=== PATIENT | female | born 1990 | race Caucasian/White ===

== ENCOUNTER 2016-12-20 17:18 | Emergency (ER) | payer OTHER ==
[2016-12-20 17:30] VITALS: BP 138/88; PULSE 99; O2SAT 97
[2016-12-20] MEDS ORDERED: Hydromorphone 1 mg/ml Ampule IV ONE (17:54)
[2016-12-20] MEDS ORDERED: TYLENOL 325 MG PO ONE (17:54)
[2016-12-20] MEDS ORDERED: ROCEPHIN 1 Gm-D5w 50 ml Bag** 1 G/50 ML IVPB IV STA (17:54)
[2016-12-20] MEDS ORDERED: BENADRYL 50 MG/ML IV ONE (17:54)
[2016-12-20] MEDS ORDERED: Sodium Chloride 0.9% 1000 ML 1,000 ML IV STA (17:54)
[2016-12-20 17:59] LABS: VBG BASE EXCESS -0.8 (-2.0-2.0); VBG HCO3- 26.7 meq/L (22-28); VBG HEMOGLOBIN 17.3; VBG O2 SATURATION 68.2 (95-100); VBG POTASSIUM 5.1 (3.5-5.1); VBG pH 7.31 (7.32-7.42)
--- NOTE | 2016-12-20 18:06 | ERPHSYRPT ---
- History of Present Illness Time Seen by Provider: 12/20/16 17:23 Source: patient, family (father) Patient Subjective Stated Complaint: pt states around 1300 this afternoon she developed pain in her right ear. states she has ahd acold. Triage Nursing Assessment: pt pink, warm, dry. redness noted to right earadrum. pt afebrile. Physician History: CC: right ear pain hx: 26 y/o patient with hx of IDDM on metformin and one shot of insulin daily. She has severe right ear pain today. Some headache last night for which she took asa. She has seen [facility] in the past two months and thinks she saw [facility] Adrián. Computer lists Dr Vasquez as primary doctor. Pt has no fever or chills. States LMP one week ago and not . She states she darnk coffee with creamer and chili with sugar today. Her sugars are often high. She has not checked for a week and is out of supplies. Allergies/Adverse Reactions: No Known Drug Allergies Allergy (Unverified 12/20/16 17:30) Home Medications: Insulin Glargine,Hum.rec.anlog [Lantus] 10 unit SQ HS 12/20/16 [History] Metformin HCl 500 mg [Glucophage 500 MG] 500 mg PO DAILY 12/20/16 [History ] Hx Tetanus, Diphtheria Vaccination/Date Given: Yes (up to date) Hx Influenza Vaccination/Date Given: No Hx Pneumococcal Vaccination/Date Given: No Immunizations Up to Date: Yes - Review of Systems Constitutional: No Fever, No Chills Eyes: No Symptoms Ears, Nose, & Throat: Ear Pain (right), No Ear Discharge Respiratory: No Cough, No Dyspnea Cardiac: No Chest Pain Abdominal/Gastrointestinal: No Abdominal Pain, No Nausea, No Vomiting Skin: No Rash Neurological: Headache (yesterday), No Focal Weakness, No Parasthesia Endocrine: Polyuria, Polydipsia All Other Systems: Reviewed and Negative - Past Medical History Pertinent Past Medical History: Yes Endocrine Medical History: Diabetes Type I - Past Surgical History Past Surgical History: Yes Other Surgical History: nasal surgery. oral surgery - Social History Smoking Status: Current every day smoker How long have you smoked: 10 Exposure to second hand smoke: No Drug Use: marijuana Patient Lives Alone: No - Female History Hx Last Menstrual Period: middle nov 2016 - Nursing Vital Signs Nursing Vital Signs: Initial Vital Signs Temperature 97.8 F 12/20/16 17:26 Pulse Rate 99 H 12/20/16 17:26 Respiratory Rate 20 12/20/16 17:26 Blood Pressure 138/88 12/20/16 17:26 O2 Sat by Pulse Oximetry 97 12/20/16 17:26 Pain Scale Pain Intensity 7 - Physical Exam General Appearance: alert Eye Exam: bilateral eye: PERRL, EOMI Ear Exam: right ear: TM red, TM bulging, other (used sweet oil), left ear: TM normal, bilateral ear: auricle normal, canal normal Nasal Exam: normal inspection Throat Exam: pharynx normal Neck Exam: normal inspection, non-tender, supple Cardiovascular/Respiratory Exam: chest non-tender, normal breath sounds, regular rate/rhythm Abdominal Exam: non-tender, soft Neurologic Exam: alert, oriented x 3, cooperative, sensation nml, No motor deficits Skin Exam: warm, dry, No rash SpO2 Interpretation: normal SpO2: 97 Oxygen Delivery: Room Air - Course Nursing assessment & vital signs reviewed: Yes Ordered Tests: Active Orders 24 hr Category Date Time Status IV Insertion STAT Care 12/20/16 17:54 Active BMP Stat Lab 12/20/16 18:02 Completed CBC W DIFF Stat Lab 12/20/16 18:02 Completed Glucose,Critical Care Urgent Lab 12/20/16 17:45 Completed HCG QUALITATIVE,SERUM Stat Lab 12/20/16 18:02 Completed Manual Differential NC Stat Lab 12/20/16 18:02 Completed VENOUS BLOOD GAS Urgent Lab 12/20/16 17:45 Completed Medication Summary Discontinued Medications Generic Name Dose Route Start Last Admin Trade Name Vick PRN Reason Stop Dose Admin Acetaminophen 650 mg 12/20/16 17:54 12/20/16 18:19 Tylenol 325 Mg PO 12/20/16 17:55 650 mg STAT ONE Administration Acetaminophen Confirm 12/20/16 18:09 Tylenol 325 Mg Administered 12/20/16 18:10 Dose 650 mg .ROUTE .STK-MED ONE Diphenhydramine HCl 25 mg 12/20/16 17:54 12/20/16 18:15 Benadryl 50 Mg/Ml IV 12/20/16 17:55 25 mg STAT ONE Administration Diphenhydramine HCl Confirm 12/20/16 18:09 Benadryl 50 Mg/Ml Administered 12/20/16 18:10 Dose 50 mg .ROUTE .STK-MED ONE Hydromorphone HCl 1 mg 12/20/16 17:54 12/20/16 18:14 Hydromorphone 1 Mg/Ml Ampule IV 12/20/16 17:55 1 mg STAT ONE Administration Hydromorphone HCl Confirm 12/20/16 18:09 Hydromorphone 1 Mg/Ml Ampule Administered 12/20/16 18:10 Dose 1 mg .ROUTE .STK-MED ONE Ceftriaxone Sodium/Dextrose 1 g in 50 mls @ 100 mls/hr 12/20/16 17:54 18:19 Rocephin 1 Gm-D5w 50 Ml Bag IV 12/20/16 18:23 100 mls/hr STAT STA Administration Sodium Chloride 1,000 mls @ 999 mls/hr 12/20/16 17:54 12/20/16 18:13 Sodium Chloride 0.9% 1000 Ml IV 12/20/16 18:54 999 mls/hr .Q1H1M STA Administration Sodium Chloride Confirm 12/20/16 18:09 Sodium Chloride 0.9% 1000 Ml Administered 12/20/16 18:10 Dose 1,000 mls @ ud .ROUTE .STK-MED ONE Ceftriaxone Sodium/Dextrose Confirm 12/20/16 18:09 Rocephin 1 Gm-D5w 50 Ml Bag Administered 12/20/16 18:10 Dose 1 g in 50 mls @ ud IV .STK-MED ONE Insulin Aspart 15 unit 12/20/16 18:08 12/20/16 18:38 Novolog Insulin SQ 12/20/16 18:09 15 unit STAT ONE Administration Insulin Aspart Confirm 12/20/16 18:33 Novolog Insulin Administered 12/20/16 18:34 Dose 15 unit .ROUTE .STK-MED ONE Lab/Rad Data: Laboratory Result Diagrams 12/20/16 18:02 12/20/16 18:02 Laboratory Results 12/20/16 12/20/16 12/20/16 Range/Units 18:02 18:02 18:02 WBC 10.0 (4.0-10.5) K/mm3 RBC 5.92 H (4.1-5.4) M/mm3 Hgb 16.5 H (12.0-16.0) gm/dl Hct 48.8 H (35-47) % MCV 82.4 (78-100) fl MCH 27.8 (26-32) pg MCHC 33.8 (32-36) g/dl RDW 12.5 (11.5-14.0) % Plt Count 404 (150-450) K/mm3 MPV 10.2 H (6-9.5) fl VBG pH (7.32-7.42) VBG pCO2 at Pat Temp (42-55) mm/Hg VBG pO2 at Pat Temp (25-40) mm/Hg VBG HCO3 (22-28) meq/L VBG O2 Sat ([place]) (95-100) VBG Base Excess (-2.0-2.0) VBG Hemoglobin VBG Carboxyhemoglobin (0.0-6.9) % T HGB POC Potassium (3.5-5.1) Glucose 596 H* (70-110) Sodium 129 L (136-145) mEq/L Potassium 4.6 (3.5-5.1) mEq/L Chloride 91 L (98-107) mEq/L Carbon Dioxide 24.4 (21-32) mEq/L Anion Gap 17.8 H (5-15) MEQ/L BUN 19 (9-20) mg/dL Creatinine 1.11 (0.55-1.30) mg/dl Estimated GFR > 60 ML/MIN Calcium 10.5 H (8.5-10.1) mg/dL Serum , Qual NEGATIVE (Negative) 12/20/16 12/20/16 Range/Units 17:45 17:45 WBC (4.0-10.5) K/mm3 RBC (4.1-5.4) M/mm3 Hgb (12.0-16.0) gm/dl Hct (35-47) % MCV (78-100) fl MCH (26-32) pg MCHC (32-36) g/dl RDW (11.5-14.0) % Plt Count (150-450) K/mm3 MPV (6-9.5) fl VBG pH 7.31 L (7.32-7.42) VBG pCO2 at Pat Temp 53 (42-55) mm/Hg VBG pO2 at Pat Temp 33 (25-40) mm/Hg VBG HCO3 26.7 (22-28) meq/L VBG O2 Sat ([place]) 68.2 L (95-100) VBG Base Excess -0.8 (-2.0-2.0) VBG Hemoglobin 17.3 VBG Carboxyhemoglobin 7.0 H* (0.0-6.9) % T HGB POC Potassium 5.1 (3.5-5.1) Glucose 701 H* (70-110) Sodium (136-145) mEq/L Potassium (3.5-5.1) mEq/L Chloride (98-107) mEq/L Carbon Dioxide (21-32) mEq/L Anion Gap (5-15) MEQ/L BUN (9-20) mg/dL Creatinine (0.55-1.30) mg/dl Estimated GFR ML/MIN Calcium (8.5-10.1) mg/dL Serum , Qual (Negative) - Progress Progress Note: 12/20/16 19:02 IVF bolus given. IV rocephin given. Labs reviewed [facility] pt and father. She is really unsure of name of insulin but takes it. She was advised needs to watch diet, follow up with [facility] this week. Instr given. Counseled pt/family regarding: lab results, diagnosis, need for follow-up - Departure Time of Disposition: 19:03 Departure Disposition: Home Clinical Impression: Right otitis media Qualifiers: Otitis media type: suppurative Chronicity: acute Recurrence: not specified as recurrent Spontaneous tympanic membrane rupture: without spontaneous rupture Qualified Code(s): H66.001 - Acute suppurative otitis media without spontaneous rupture of ear drum, right ear Uncontrolled type 2 diabetes mellitus Qualifiers: Diabetes mellitus complication status: without complication Condition: Fair Critical Care Time: No Referrals: CHRSITINA VASQUEZ MD [Primary Care Provider] - Instructions: Otitis Media (Middle Ear Infection), Diabetes Type 2, Hyperglycemia -- Adult, Ear Pain Additional Instructions: Rx amoxil. Follow up with primary care doctor this week. Avoid sugar and sweets, watch sugars, continue insulin and metformin. Return for fever, recurrent vomiting, concerns. Rx ibuprofen for pain. Prescriptions: Ibuprofen 600 mg PO Q6H PRN PRN #15 tablet PRN Reason: Pain Amoxicillin [Amoxil] 1 cap PO TID #30 capsule
[2016-12-20 18:08] LABS: Mean Cell Volume 82.4 fl (78-100); Mean Platelet Volume 10.2 fl (6-9.5); Platelet Count 404 K/mm3 (150-450); Red Blood Count 5.92 M/mm3 (4.1-5.4); Red Cell Distribution Width 12.5 % (11.5-14.0)
[2016-12-20] MEDS ORDERED: NovoLOG Insulin SQ ONE (18:08)
[2016-12-20] MEDS ORDERED: BENADRYL 50 MG/ML ONE (18:09)
[2016-12-20] MEDS ORDERED: ROCEPHIN 1 Gm-D5w 50 ml Bag** 1 G/50 ML IVPB IV ONE (18:09)
[2016-12-20] MEDS ORDERED: Sodium Chloride 0.9% 1000 ML 1,000 ML ONE (18:09)
[2016-12-20] MEDS ORDERED: Hydromorphone 1 mg/ml Ampule ONE (18:09)
[2016-12-20] MEDS ORDERED: TYLENOL 325 MG ONE (18:09)
[2016-12-20 18:10] LABS: Mean Corpuscular Hemoglobin 27.8 pg (26-32)
[2016-12-20 18:20] LABS: ANION GAP 17.8 MEQ/L (5-15); BLOOD UREA NITROGEN 19 mg/dL (9-20); CHLORIDE 91 mEq/L (98-107); Carbon Dioxide 24.4 mEq/L (21-32); Potassium 4.6 mEq/L (3.5-5.1); SODIUM 129 mEq/L (136-145)
[2016-12-20] MEDS ORDERED: NovoLOG Insulin ONE (18:33)
[2016-12-20 18:36] LABS: Glucose 596 MG/DL (70-110)
[2016-12-20 19:41] LABS: Eosinophil 1 % (0.00-3.0); Total Cells Counted 100
[2016-12-20 19:42] LABS: Platelet Estimate NORMAL (NORMAL)
== END 2016-12-20 19:28 | disposition home or self-care (01) ==
LOC: ED 17:18
DX: H66.001 Acute suppurative otitis media without spontaneous rupture of ear drum, right ear (principal); E11.65 Type 2 diabetes mellitus with hyperglycemia; Z79.4 Long term (current) use of insulin
CPT/HCPCS: 36000; 36415; 80048; 82805; 82947; 84703; 85025; 96372; 96374; 96375; 99283; J0696; J1170; J1200; A9270-GY

== ENCOUNTER 2017-08-31 18:05 | Emergency (ER) | payer OTHER ==
[2017-08-31 18:13] VITALS: O2SAT 98
[2017-08-31] MEDS ORDERED: Sodium Chloride 0.9% 1000 ML 2,000 ML ONE (18:14)
[2017-08-31] MEDS ORDERED: Sodium Chloride 0.9% 1000 ML 1,000 ML IV STA ×2 (18:14→18:16)
--- NOTE | 2017-08-31 18:22 | ERPHSYRPT ---
- History of Present Illness Source: patient Exam Limitations: no limitations Patient Subjective Stated Complaint: Hyperglycemia x1 hour, weakness, and intermittent AMS Triage Nursing Assessment: Pt presents to the ED with complaints of hyperglycemia x1 hour. Pt states she is supposed to take daily metformin as well as insulin injections but has been noncompliant x "several months." Pt is pale on arrival, alert and oriented x4, no distress noted, skin PWD. Pt states "I need an insulin shot." Timing/Duration: today Severity: moderate Modifying Factors: Improves With: nothing Associated Symptoms: diaphoresis, other (patient feels intermittently confused states her sugars are high), No nausea, No vomiting, No abdominal pain, No shortness of breath, No heartburn, No cough, No chills, No chest pain, No fever , No headaches, No loss of appetite, No malaise, No rash, No syncope, No seizure , No weakness Hx Tetanus, Diphtheria Vaccination/Date Given: Yes Hx Influenza Vaccination/Date Given: No Hx Pneumococcal Vaccination/Date Given: No Immunizations Up to Date: No <DUC RENDON - Last Filed: 08/31/17 19:24> <LITA SCHNEIDER - Last Filed: 08/31/17 21:43> - History of Present Illness Time Seen by Provider: 08/31/17 18:16 Physician History: 27-year-old white female arrives with complaints of a having high sugars for about an hour apparently felt somewhat confused Patient does have a history of diabetes Past medical history includes insulin-dependent diabetes mellitus Past surgical history includes oral surgery Social history is positive for tobacco use positive for marijuana use positive occasional alcohol use (DUC RENDON) Allergies/Adverse Reactions: No Known Drug Allergies Allergy (Verified 08/31/17 18:14) Home Medications: No Reportable Medications [No Reported Medications] 08/31/17 [History] - Review of Systems Constitutional: Other (feels somewhat confused), No Fever, No Chills Eyes: No Symptoms Ears, Nose, & Throat: No Symptoms Respiratory: No Cough, No Dyspnea Cardiac: No Chest Pain, No Edema, No Syncope Abdominal/Gastrointestinal: No Abdominal Pain, No Nausea, No Vomiting, No Diarrhea Genitourinary Symptoms: No Dysuria Musculoskeletal: No Back Pain, No Neck Pain Skin: No Rash Neurological: No Dizziness, No Focal Weakness, No Sensory Changes Psychological: No Symptoms Endocrine: No Symptoms All Other Systems: Reviewed and Negative <DUC RENDON - Last Filed: 08/31/17 19:24> - Past Medical History Pertinent Past Medical History: Yes Endocrine Medical History: Diabetes Type I - Past Surgical History Past Surgical History: Yes Other Surgical History: nasal surgery. oral surgery - Social History Smoking Status: Current every day smoker How long have you smoked: 10 years Exposure to second hand smoke: Yes Drug Use: marijuana Patient Lives Alone: No - Female History Hx Last Menstrual Period: 08/06/2017 Hx Now: No <DUC RENDON - Last Filed: 08/31/17 19:24> - Physical Exam General Appearance: no apparent distress, alert Eye Exam: PERRL/EOMI, eyes nml inspection Ears, Nose, Throat Exam: normal ENT inspection, TMs normal, pharynx normal, moist mucous membranes Neck Exam: normal inspection, non-tender, supple, full range of motion Respiratory Exam: normal breath sounds, lungs clear, No respiratory distress Cardiovascular Exam: regular rate/rhythm, normal heart sounds, normal peripheral pulses Gastrointestinal/Abdomen Exam: soft, normal bowel sounds, No tenderness, No mass Back Exam: normal inspection, normal range of motion, No CVA tenderness, No vertebral tenderness Extremity Exam: normal inspection, normal range of motion, pelvis stable Neurologic Exam: alert, oriented x 3, cooperative, corrugator operator II-XII nml as tested, normal mood/affect, nml cerebellar function, nml station & gait, sensation nml, No motor deficits Skin Exam: normal color, warm, dry, No rash Lymphatic Exam: No adenopathy SpO2 Interpretation: normal (98%) SpO2: 98 Oxygen Delivery: Room Air <DUC RENDON - Last Filed: 08/31/17 19:24> - Nursing Vital Signs Nursing Vital Signs: Initial Vital Signs Temperature 98.6 F 08/31/17 18:10 Pulse Rate 109 H 08/31/17 18:10 Respiratory Rate 13 08/31/17 18:10 Blood Pressure 130/88 08/31/17 18:10 O2 Sat by Pulse Oximetry 98 08/31/17 18:10 Pain Scale Pain Intensity 0 - Course Nursing assessment & vital signs reviewed: Yes EKG Interpreted by Me: RATE (93 bpm), Sinus Rhythm, NORMAL AXIS, Other (EKG: Sinus rhythm, 93 bpm, no acute ST or T WAVE changes, essentially normal EKG) <JULIETADUC GOMEZ - Last Filed: 08/31/17 19:24> Ordered Tests: Active Orders 24 hr Category Date Time Status Accucheck STAT Care 08/31/17 18:14 Active EKG-ER Only STAT Care 08/31/17 18:14 Active IV Insertion STAT Care 08/31/17 18:14 Active Pulse Oximetry (ED) STAT Care 08/31/17 18:14 Active CBC W DIFF Stat Lab 08/31/17 18:30 Completed CMP Stat Lab 08/31/17 18:30 Completed ETHYL ALCOHOL Stat Lab 08/31/17 18:30 Completed HCG QUALITATIVE,SERUM Stat Lab 08/31/17 18:30 Completed Manual Differential NC Stat Lab 08/31/17 18:30 Completed UA W/RFX UR CULTURE Stat Lab 08/31/17 19:25 Completed Urine Triage Profile Stat Lab 08/31/17 19:25 Completed VENOUS BLOOD GAS Urgent Lab 08/31/17 18:14 Completed Medication Summary Discontinued Medications Generic Name Dose Route Start Last Admin Trade Name Vick PRN Reason Stop Dose Admin Sodium Chloride Confirm 08/31/17 18:14 Sodium Chloride 0.9% 1000 Ml Administered 08/31/17 18:15 Dose 2,000 mls @ ud .ROUTE .STK-MED ONE Sodium Chloride 1,000 mls @ 999 mls/hr 08/31/17 18:14 08/31/17 18:39 Sodium Chloride 0.9% 1000 Ml IV 08/31/17 19:14 999 mls/hr .Q1H1M STA Administration Sodium Chloride 1,000 mls @ 999 mls/hr 08/31/17 18:16 08/31/17 18:39 Sodium Chloride 0.9% 1000 Ml IV 08/31/17 19:16 999 mls/hr .Q1H1M STA Administration Insulin Human Regular 6 unit 08/31/17 20:30 08/31/17 21:00 Novolin R IV 08/31/17 20:31 6 unit STAT ONE Administration Insulin Human Regular Confirm 08/31/17 20:59 Novolin R Administered 08/31/17 21:00 Dose 6 unit .ROUTE .STK-MED ONE Lab/Rad Data: Laboratory Result Diagrams 08/31/17 18:30 08/31/17 18:30 Laboratory Results 08/31/17 08/31/17 08/31/17 Range/Units 19:25 19:25 18:30 WBC (4.0-10.5) K/mm3 RBC (4.1-5.4) M/mm3 Hgb (12.0-16.0) gm/dl Hct (35-47) % MCV (78-100) fl MCH (26-32) pg MCHC (32-36) g/dl RDW (11.5-14.0) % Plt Count (150-450) K/mm3 MPV (6-9.5) fl Absolute Granulocytes (1.4-6.9) Segmented Neutrophils (36.0-66.0) % Band Neutrophils (0.0-2.0) % Lymphocytes (Manual) (24-44) % Monocytes (Manual) (0.0-12.0) % Eosinophils (Manual) (0.00-3.0) % Platelet Estimate (NORMAL) RBC Morphology pO2/FiO2 Ratio % VBG pH (7.32-7.42) VBG pCO2 at Pat Temp (42-55) mm/Hg VBG pO2 at Pat Temp (25-40) mm/Hg VBG HCO3 (22-28) meq/L VBG O2 Sat ([place]) (95-100) VBG Base Excess (-2.0-2.0) VBG Hemoglobin VBG Carboxyhemoglobin (0.0-6.9) % T HGB POC Potassium (3.5-5.1) Sodium (137-145) mmol/L Potassium (3.5-5.1) mmol/L Chloride (98-107) mmol/L Carbon Dioxide (22-30) mmol/L Anion Gap (5-15) MEQ/L BUN (7-17) mg/dL Creatinine (0.52-1.04) mg/dL Estimated GFR ML/MIN Glucose (74-106) mg/dL Calcium (8.4-10.2) mg/dL Total Bilirubin (0.2-1.3) mg/dL AST (14-36) U/L ALT (0-35) U/L Alkaline Phosphatase (38-126) U/L Serum Total Protein (6.3-8.2) g/dL Albumin (3.5-5.0) g/dL Serum , Qual NEGATIVE (Negative) Ur Collection Type CCMS Urine Color YELLOW (YELLOW) Urine Appearance CLEAR (CLEAR) Urine pH 7.0 (5-6) Ur Specific [place] 1.015 (1.005-1.025) Urine Protein NEGATIVE (Negative) Urine Ketones NEGATIVE (NEGATIVE) Urine Blood NEGATIVE (0-5) Maik/ul Urine Nitrite NEGATIVE (NEGATIVE) Urine Bilirubin NEGATIVE (NEGATIVE) Urine Urobilinogen NORMAL (0-1) mg/dL Ur Leukocyte Esterase NEGATIVE (NEGATIVE) Urine Culture Reflexed NO (NO) Urine Glucose 1000 (NEGATIVE) mg/dL Urine Opiates Level NEGATIVE (NEGATIVE) Ur Methadone NEGATIVE (NEGATIVE) Urine Barbiturates NEGATIVE (NEGATIVE) Ur Phencyclidine (PCP) NEGATIVE (NEGATIVE) Urine Amphetamine POSITIVE (NEGATIVE) U Benzodiazepine Level POSITIVE (NEGATIVE) Urine Cocaine NEGATIVE (NEGATIVE) Urine Marijuana (THC) POSITIVE (NEGATIVE) Ethyl Alcohol (0-10) mg/dL Specimen Received [id number] 08/31/17 08/31/17 Range/Units 18:30 18:30 18:14 WBC 8.5 (4.0-10.5) K/mm3 RBC 5.13 (4.1-5.4) M/mm3 Hgb 14.7 (12.0-16.0) gm/dl Hct 42.8 (35-47) % MCV 83.4 (78-100) fl MCH 28.7 (26-32) pg MCHC 34.3 (32-36) g/dl RDW 12.8 (11.5-14.0) % Plt Count 298 (150-450) K/mm3 MPV 10.3 H (6-9.5) fl Absolute Granulocytes 4.11 (1.4-6.9) Segmented Neutrophils 42 (36.0-66.0) % Band Neutrophils 1 (0.0-2.0) % Lymphocytes (Manual) 45 H (24-44) % Monocytes (Manual) 10 (0.0-12.0) % Eosinophils (Manual) 2 (0.00-3.0) % Platelet Estimate NORMAL (NORMAL) RBC Morphology NORMAL pO2/FiO2 Ratio 21.0 % VBG pH 7.46 H (7.32-7.42) VBG pCO2 at Pat Temp 42 (42-55) mm/Hg VBG pO2 at Pat Temp 46 H (25-40) mm/Hg VBG HCO3 29.9 H* (22-28) meq/L VBG O2 Sat ([place]) 89.3 L (95-100) VBG Base Excess 5.4 H (-2.0-2.0) VBG Hemoglobin 15.0 VBG Carboxyhemoglobin 5.3 (0.0-6.9) % T HGB POC Potassium 4.9 (3.5-5.1) Sodium 137 (137-145) mmol/L Potassium 4.1 (3.5-5.1) mmol/L Chloride 97 L (98-107) mmol/L Carbon Dioxide 28 (22-30) mmol/L Anion Gap 16.5 H (5-15) MEQ/L BUN 13 (7-17) mg/dL Creatinine 0.63 (0.52-1.04) mg/dL Estimated GFR > 60.0 ML/MIN Glucose 436 H (74-106) mg/dL Calcium 10.0 (8.4-10.2) mg/dL Total Bilirubin 0.20 (0.2-1.3) mg/dL AST 10 L (14-36) U/L ALT 19 (0-35) U/L Alkaline Phosphatase 73 (38-126) U/L Serum Total Protein 7.7 (6.3-8.2) g/dL Albumin 4.7 (3.5-5.0) g/dL Serum , Qual (Negative) Ur Collection Type Urine Color (YELLOW) Urine Appearance (CLEAR) Urine pH (5-6) Ur Specific [place] (1.005-1.025) Urine Protein (Negative) Urine Ketones (NEGATIVE) Urine Blood (0-5) Maik/ul Urine Nitrite (NEGATIVE) Urine Bilirubin (NEGATIVE) Urine Urobilinogen (0-1) mg/dL Ur Leukocyte Esterase (NEGATIVE) Urine Culture Reflexed (NO) Urine Glucose (NEGATIVE) mg/dL Urine Opiates Level (NEGATIVE) Ur Methadone (NEGATIVE) Urine Barbiturates (NEGATIVE) Ur Phencyclidine (PCP) (NEGATIVE) Urine Amphetamine (NEGATIVE) U Benzodiazepine Level (NEGATIVE) Urine Cocaine (NEGATIVE) Urine Marijuana (THC) (NEGATIVE) Ethyl Alcohol < 10 (0-10) mg/dL Specimen Received - Progress Progress: improved <DUC RENDON - Last Filed: 08/31/17 19:24> <LITA SCHNEIDER - Last Filed: 08/31/17 21:43> - Progress Progress Note: 08/31/17 19:20 27-year-old white female intermittently confused. Patient with a blood sugarof over 400 She is actually alkalotic on the VBGs patient has not provided a urinne as of yet case is discussed with he will assume care of this patient due to shift changse . The patient is recieving 2 liters of normal saline IV. ( DUC RENDON) 08/31/17 21:40 Repeat FS was 340 and the patient was given 6 units of regular insulin. Repeat FS after insulin was 230. Pt has agreed to F/U with her PCP in the morning. Pt feels much better. (LITA SCHNEIDER) <DUC RENDON - Last Filed: 08/31/17 19:24> - Departure Time of Disposition: 21:42 Departure Disposition: Home Critical Care Time: No <LITA SCHNEIDER - Last Filed: 08/31/17 21:43> - Departure Clinical Impression: Hyperglycemia Condition: Stable Referrals: CHRISTINA VASQUEZ MD [ACTIVE STAFF] - Instructions: Hyperglycemia, Adult (DC) Additional Instructions: Follow up with your primary care doctor in the morning for script for your insulin.
[2017-08-31 18:29] LABS: VBG BASE EXCESS 5.4 (-2.0-2.0); VBG CARBOXYHEMOGLOBIN 5.3 % T HGB (0.0-6.9); VBG HCO3- 29.9 meq/L (22-28); VBG O2 SATURATION 89.3 (95-100); VBG POTASSIUM 4.9 (3.5-5.1); VBG pH 7.46 (7.32-7.42)
[2017-08-31 18:42] LABS: Granulocyte Absolute (ANC) 4.11 (1.4-6.9); Hematocrit 42.8 % (35-47); Hemoglobin 14.7 gm/dl (12.0-16.0); Mean Cell Volume 83.4 fl (78-100); Mean Corpuscular Hemoglobin 28.7 pg (26-32); Mean Corpuscular Hgb Concent. 34.3 g/dl (32-36); Mean Platelet Volume 10.3 fl (6-9.5); Platelet Count 298 K/mm3 (150-450); Red Blood Count 5.13 M/mm3 (4.1-5.4); Red Cell Distribution Width 12.8 % (11.5-14.0); White Blood Count 8.5 K/mm3 (4.0-10.5)
[2017-08-31 19:10] LABS: ALBUMIN 4.7 g/dL (3.5-5.0); ALKALINE PHOSPHATASE 73 U/L (38-126); ANION GAP 16.5 MEQ/L (5-15); BLOOD UREA NITROGEN 13 mg/dL (7-17); CHLORIDE 97 mmol/L (98-107); Carbon Dioxide 28 mmol/L (22-30); Creatinine 1 0.63 mg/dL (0.52-1.04); Glucose 436 mg/dL (74-106); Potassium 4.1 mmol/L (3.5-5.1); SGOT/AST 10 U/L (14-36); SGPT/ALT 19 U/L (0-35); SODIUM 137 mmol/L (137-145); Total Protein 7.7 g/dL (6.3-8.2)
[2017-08-31 19:12] LABS: BAND 1 % (0.0-2.0); ETHYL ALCOHOL < 10 mg/dL (0-10); Eosinophil 2 % (0.00-3.0); Lymphocytes 45 % (24-44); Monocyte 10 % (0.0-12.0); Neutrophils 42 % (36.0-66.0); Platelet Estimate NORMAL (NORMAL); Total Cells Counted 100
[2017-08-31 19:21] VITALS: BP 145/98; PULSE 90
[2017-08-31 19:31] LABS: Appearance CLEAR (CLEAR); Bilirubin NEGATIVE (NEGATIVE); Blood NEGATIVE Ery/ul (0-5); Glucose 1000 mg/dL (NEGATIVE); Ketones NEGATIVE (NEGATIVE); Leukocyte Esterase NEGATIVE (NEGATIVE); Nitrite NEGATIVE (NEGATIVE); Protein,Urine Dip NEGATIVE (Negative); Specific Gravity 1.015 (1.005-1.025); Urobilinogen NORMAL mg/dL (0-1)
[2017-08-31 19:47] LABS: Amphetamine,Urine POSITIVE (NEGATIVE); Barbiturate,Urine NEGATIVE (NEGATIVE); Benzodiazepine,Urine POSITIVE (NEGATIVE); Cocaine,Urine NEGATIVE (NEGATIVE); Methadone,Urine NEGATIVE (NEGATIVE); Opiate,Urine NEGATIVE (NEGATIVE); PCP,Urine NEGATIVE (NEGATIVE); THC,Urine POSITIVE (NEGATIVE)
[2017-08-31] MEDS ORDERED: NovoLIN R IV ONE (20:30)
[2017-08-31] MEDS ORDERED: NovoLIN R ONE (20:59)
== END 2017-08-31 21:45 | disposition home or self-care (01) ==
LOC: ED 18:05
DX: E10.65 Type 1 diabetes mellitus with hyperglycemia (principal); R61 Generalized hyperhidrosis
CPT/HCPCS: 36000; 36415; 80053; 80307; 81002; 82805; 82962; 84703; 85025; 93005; 96360; 96374; 99284; A9270-GY; G0480

== ENCOUNTER 2018-07-13 20:51 | Observation (INO) | payer OTHER ==
[2018-07-13] MEDS ORDERED: Sodium Chloride 0.9% 1000 ML 1,000 ML ONE ×2 (21:12→22:48)
[2018-07-13] MEDS ORDERED: Sodium Chloride 0.9% 1000 ML 1,000 ML IV STA ×2 (21:19→22:49)
[2018-07-13] MEDS ORDERED: Zofran 4 MG/2 ML VIAL IV ONE (21:19)
[2018-07-13] MEDS ORDERED: NovoLIN R IV ONE ×2 (21:19→22:49)
--- NOTE | 2018-07-13 21:19 | ERPHSYRPT ---
- History of Present Illness Time Seen by Provider: 07/13/18 21:05 Source: patient Exam Limitations: no limitations Patient Subjective Stated Complaint: pt is alert and oriented x3. pt is ambulatory with a steady gait. pt states that she's been feeling "foggy" on and off for about 3 weeks. pt states she's also had some vaginal bleeding for 3 weeks. pt state's her sugars may be high "she lost her meter but has been taking her shots" Triage Nursing Assessment: pt is alert and oriented. pt is ambulatory with a steady gait. pt skin is pwd. pt denies abd pain, n/v. pt PERLLA. Physician History: 28 y/o diabetic white female presents with increasing confusion. pt does not monitor her blood glucose levels closely. she has also has had intermittent vaginal bleeding over last 3 weeks. pt denies soa, denies abd pain, denies cp. pt did not want to come into ED however, dad made her come. Timing/Duration: day(s) (several days confusion), week(s) (3 weeks intermittent vaginal bleeding), intermittent Severity: mild Associated Symptoms: weakness, No nausea, No vomiting, No abdominal pain, No shortness of breath Allergies/Adverse Reactions: No Known Drug Allergies Allergy (Verified 08/31/17 18:14) Home Medications: No Reportable Medications [No Reported Medications] 08/31/17 [History] Hx Tetanus, Diphtheria Vaccination/Date Given: Yes Hx Influenza Vaccination/Date Given: No Hx Pneumococcal Vaccination/Date Given: No Immunizations Up to Date: Yes - Review of Systems Constitutional: No Symptoms Eyes: No Symptoms Ears, Nose, & Throat: No Symptoms Respiratory: No Symptoms Cardiac: No Symptoms Abdominal/Gastrointestinal: No Symptoms Genitourinary Symptoms: Vaginal Bleeding (intermittent over 3 weeks) Musculoskeletal: No Symptoms Skin: No Symptoms Neurological: Other (increased confusion over last few days) Psychological: No Symptoms Endocrine: No Symptoms Hematologic/Lymphatic: No Symptoms Immunological/Allergic: No Symptoms All Other Systems: Reviewed and Negative - Past Medical History Pertinent Past Medical History: Yes Neurological History: No Pertinent History ENT History: No Pertinent History Cardiac History: No Pertinent History Respiratory History: No Pertinent History Endocrine Medical History: Diabetes Type I Musculoskeletal History: No Pertinent History GI Medical History: No Pertinent History History: No Pertinent History Psycho-Social History: Depression Female Reproductive Disorders: No Pertinent History - Past Surgical History Past Surgical History: Yes Neuro Surgical History: No Pertinent History Cardiac: No Pertinent History Respiratory: No Pertinent History Gastrointestinal: No Pertinent History Genitourinary: No Pertinent History Musculoskeletal: No Pertinent History Female Surgical History: No Pertinent History Other Surgical History: nasal surgery. oral surgery - Social History Smoking Status: Current every day smoker How long have you smoked: 12 Exposure to second hand smoke: Yes Drug Use: marijuana Patient Lives Alone: No - Female History Hx Last Menstrual Period: currently Hx Now: No - Nursing Vital Signs Nursing Vital Signs: Initial Vital Signs Pulse Rate 87 07/13/18 20:58 Respiratory Rate 16 07/13/18 20:58 Blood Pressure 135/90 07/13/18 20:58 O2 Sat by Pulse Oximetry 100 07/13/18 20:58 Pain Scale Pain Intensity 4 - Physical Exam General Appearance: mild distress, alert, anxiety Eye Exam: PERRL/EOMI, eyes nml inspection Ears, Nose, Throat Exam: normal ENT inspection, moist mucous membranes Neck Exam: normal inspection, non-tender, supple, full range of motion Respiratory Exam: normal breath sounds, lungs clear, airway intact, No chest tenderness, No respiratory distress Cardiovascular Exam: regular rate/rhythm, normal heart sounds, normal peripheral pulses Gastrointestinal/Abdomen Exam: soft, normal bowel sounds, No tenderness Pelvic Exam: not done Rectal Exam: not done Back Exam: normal inspection, normal range of motion, No CVA tenderness, No vertebral tenderness Extremity Exam: normal inspection, normal range of motion, pelvis stable Neurologic Exam: alert, oriented x 3, cooperative, 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, normal mood/affect, nml cerebellar function, nml station & gait, sensation nml Skin Exam: normal color, warm, dry Lymphatic Exam: No adenopathy SpO2 Interpretation: normal SpO2: 100 O2 Delivery: Room Air - Course Nursing assessment & vital signs reviewed: Yes Ordered Tests: Active Orders 24 hr Category Date Time Status Accucheck STAT Care 07/13/18 21:19 Active Percolator Operator STAT Care 07/13/18 21:20 Active Clean Catch Urine Specimen STAT Care 07/13/18 21:20 Active IV Insertion STAT Care 07/13/18 21:19 Active Pulse Oximetry (ED) STAT Care 07/13/18 21:19 Active BMP Stat Lab 07/14/18 00:05 Completed CBC W DIFF Stat Lab 07/13/18 21:20 Completed CMP Stat Lab 07/13/18 21:20 Completed HCG,QUALITATIVE URINE Stat Lab 07/13/18 21:19 Completed Lactic Acid Stat Lab 07/13/18 00:10 Results Lactic Acid Urgent Lab 07/13/18 21:30 Completed UA W/RFX UR CULTURE Stat Lab 07/13/18 21:19 Completed Urine Triage Profile Stat Lab 07/13/18 21:19 Completed Transfer Order Routine Transfer 07/14/18 Ordered Medication Summary Generic Name Dose Route Start Last Admin Trade Name Freq PRN Reason Stop Dose Admin Sodium Chloride 500 mls @ 500 mls/hr 07/14/18 00:25 07/14/18 00:38 Sodium Chloride 0.9% 500 Ml IV 07/14/18 01:24 500 mls/hr .Q1H ONE Administration Discontinued Medications Generic Name Dose Route Start Last Admin Trade Name Vick PRN Reason Stop Dose Admin Sodium Chloride Confirm 07/13/18 21:12 Sodium Chloride 0.9% 1000 Ml Administered 07/13/18 21:13 Dose 1,000 mls @ ud .ROUTE .STK-MED ONE Sodium Chloride 1,000 mls @ 999 mls/hr 07/13/18 21:19 07/13/18 22:30 Sodium Chloride 0.9% 1000 Ml IV 07/13/18 22:19 Infused .Q1H1M STA Infusion Sodium Chloride Confirm 07/13/18 22:48 Sodium Chloride 0.9% 1000 Ml Administered 07/13/18 22:49 Dose 1,000 mls @ ud .ROUTE .STK-MED ONE Sodium Chloride 1,000 mls @ 999 mls/hr 07/13/18 22:49 07/13/18 23:55 Sodium Chloride 0.9% 1000 Ml IV 07/13/18 23:49 Infused .Q1H1M STA Infusion Sodium Chloride Confirm 07/14/18 00:34 Sodium Chloride 0.9% 500 Ml Administered 07/14/18 00:35 Dose 500 mls @ ud IV .STK-MED ONE Insulin Human Regular 15 unit 07/13/18 21:19 07/13/18 21:36 Novolin R IV 07/13/18 21:20 15 unit STAT ONE Administration Insulin Human Regular Confirm 07/13/18 21:33 Novolin R Administered 07/13/18 21:34 Dose 15 unit .ROUTE .STK-MED ONE Insulin Human Regular 10 unit 07/13/18 22:49 07/13/18 22:53 Novolin R IV 07/13/18 22:50 10 unit STAT ONE Administration Insulin Human Regular Confirm 07/13/18 22:50 Novolin R Administered 07/13/18 22:51 Dose 10 unit .ROUTE .STK-MED ONE Ondansetron HCl 4 mg 07/13/18 21:19 07/13/18 21:36 Zofran 4 Mg/2 Ml Vial IV 07/13/18 21:20 4 mg STAT ONE Administration Ondansetron HCl Confirm 07/13/18 21:32 Zofran 4 Mg/2 Ml Vial Administered 07/13/18 21:33 Dose 4 mg .ROUTE .STK-MED ONE Lab/Rad Data: Laboratory Result Diagrams 07/13/18 21:20 07/14/18 00:05 Laboratory Results 07/14/18 07/13/18 07/13/18 Range/Units 00:05 21:30 21:20 WBC (4.0-10.5) K/mm3 RBC (4.1-5.4) M/mm3 Hgb (12.0-16.0) gm/dl Hct (35-47) % MCV (78-100) fl MCH (26-32) pg MCHC (32-36) g/dl RDW (11.5-14.0) % Plt Count (150-450) K/mm3 MPV (6-9.5) fl Gran % (36.0-66.0) % Eos # (Auto) (0-0.5) Absolute Lymphs (auto) (1.0-4.6) Absolute Monos (auto) (0.0-1.3) Lymphocytes % (24.0-44.0) % Monocytes % (0.0-12.0) % Eosinophils % (0.00-5.0) % Basophils % (0.0-0.4) % Absolute Granulocytes (1.4-6.9) Basophils # (0-0.4) Sodium 131 L 129 L (137-145) mmol/L Potassium 4.7 5.1 (3.5-5.1) mmol/L Chloride 96 L 90 L (98-107) mmol/L Carbon Dioxide 25 25 (22-30) mmol/L Anion Gap 14.2 19.4 H (5-15) MEQ/L BUN 15 17 (7-17) mg/dL Creatinine 0.49 L 0.64 (0.52-1.04) mg/dL Estimated GFR > 60.0 > 60.0 ML/MIN Glucose 338 H 730 H* (74-106) mg/dL Lactic Acid 3.0 H (0.4-2.0) Calcium 8.6 9.8 (8.4-10.2) mg/dL Total Bilirubin 0.20 (0.2-1.3) mg/dL AST 16 (14-36) U/L ALT 18 (0-35) U/L Alkaline Phosphatase 124 (38-126) U/L Serum Total Protein 7.9 (6.3-8.2) g/dL Albumin 4.3 (3.5-5.0) g/dL Urine Color (YELLOW) Urine Appearance (CLEAR) Urine pH (5-6) Ur Specific Stollings (1.005-1.025) Urine Protein (Negative) Urine Ketones (NEGATIVE) Urine Blood (0-5) Maik/ul Urine Nitrite (NEGATIVE) Urine Bilirubin (NEGATIVE) Urine Urobilinogen (0-1) mg/dL Ur Leukocyte Esterase (NEGATIVE) Urine WBC (Auto) (0-5) /HPF Urine RBC (Auto) (0-2) /HPF U Epithel Cells (Auto) (FEW) /HPF Urine Bacteria (Auto) (NEGATIVE) /HPF Urine Culture Reflexed (NO) Urine Glucose (NEGATIVE) mg/dL Urine HCG, Qual (Negative) Urine Opiates Level (NEGATIVE) Ur Methadone (NEGATIVE) Urine Barbiturates (NEGATIVE) Ur Phencyclidine (PCP) (NEGATIVE) Urine Amphetamine (NEGATIVE) U Benzodiazepine Level (NEGATIVE) Urine Cocaine (NEGATIVE) Urine Marijuana (THC) (NEGATIVE) 07/13/18 07/13/18 07/13/18 Range/Units 21:20 21:19 21: WBC 7.7 (4.0-10.5) K/mm3 RBC 5.26 (4.1-5.4) M/mm3 Hgb 15.2 (12.0-16.0) gm/dl Hct 45.0 (35-47) % MCV 85.6 (78-100) fl MCH 28.9 (26-32) pg MCHC 33.8 (32-36) g/dl RDW 13.1 (11.5-14.0) % Plt Count 328 (150-450) K/mm3 MPV 10.3 H (6-9.5) fl Gran % 53.7 (36.0-66.0) % Eos # (Auto) 0.16 (0-0.5) Absolute Lymphs (auto) 2.53 (1.0-4.6) Absolute Monos (auto) 0.85 (0.0-1.3) Lymphocytes % 32.8 (24.0-44.0) % Monocytes % 11.0 (0.0-12.0) % Eosinophils % 2.1 (0.00-5.0) % Basophils % 0.4 (0.0-0.4) % Absolute Granulocytes 4.15 (1.4-6.9) Basophils # 0.03 (0-0.4) Sodium (137-145) mmol/L Potassium (3.5-5.1) mmol/L Chloride (98-107) mmol/L Carbon Dioxide (22-30) mmol/L Anion Gap (5-15) MEQ/L BUN (7-17) mg/dL Creatinine (0.52-1.04) mg/dL Estimated GFR ML/MIN Glucose (74-106) mg/dL Lactic Acid (0.4-2.0) Calcium (8.4-10.2) mg/dL Total Bilirubin (0.2-1.3) mg/dL AST (14-36) U/L ALT (0-35) U/L Alkaline Phosphatase (38-126) U/L Serum Total Protein (6.3-8.2) g/dL Albumin (3.5-5.0) g/dL Urine Color RED (YELLOW) Urine Appearance SLIGHTLY CLOUDY (CLEAR) Urine pH 6.0 (5-6) Ur Specific Stollings 1.029 (1.005-1.025) Urine Protein 30 (Negative) Urine Ketones NEGATIVE (NEGATIVE) Urine Blood LARGE (0-5) Maik/ul Urine Nitrite NEGATIVE (NEGATIVE) Urine Bilirubin NEGATIVE (NEGATIVE) Urine Urobilinogen NEGATIVE (0-1) mg/dL Ur Leukocyte Esterase NEGATIVE (NEGATIVE) Urine WBC (Auto) NONE (0-5) /HPF Urine RBC (Auto) >101 (0-2) /HPF U Epithel Cells (Auto) RARE (FEW) /HPF Urine Bacteria (Auto) NONE (NEGATIVE) /HPF Urine Culture Reflexed NO (NO) Urine Glucose >=500 (NEGATIVE) mg/dL Urine HCG, Qual (Negative) Urine Opiates Level NEGATIVE (NEGATIVE) Ur Methadone NEGATIVE (NEGATIVE) Urine Barbiturates NEGATIVE (NEGATIVE) Ur Phencyclidine (PCP) NEGATIVE (NEGATIVE) Urine Amphetamine NEGATIVE (NEGATIVE) U Benzodiazepine Level NEGATIVE (NEGATIVE) Urine Cocaine NEGATIVE (NEGATIVE) Urine Marijuana (THC) NEGATIVE (NEGATIVE) 07/13/18 07/13/18 Range/Units 21:19 00:10 WBC (4.0-10.5) K/mm3 RBC (4.1-5.4) M/mm3 Hgb (12.0-16.0) gm/dl Hct (35-47) % MCV (78-100) fl MCH (26-32) pg MCHC (32-36) g/dl RDW (11.5-14.0) % Plt Count (150-450) K/mm3 MPV (6-9.5) fl Gran % (36.0-66.0) % Eos # (Auto) (0-0.5) Absolute Lymphs (auto) (1.0-4.6) Absolute Monos (auto) (0.0-1.3) Lymphocytes % (24.0-44.0) % Monocytes % (0.0-12.0) % Eosinophils % (0.00-5.0) % Basophils % (0.0-0.4) % Absolute Granulocytes (1.4-6.9) Basophils # (0-0.4) Sodium (137-145) mmol/L Potassium (3.5-5.1) mmol/L Chloride (98-107) mmol/L Carbon Dioxide (22-30) mmol/L Anion Gap (5-15) MEQ/L BUN (7-17) mg/dL Creatinine (0.52-1.04) mg/dL Estimated GFR ML/MIN Glucose (74-106) mg/dL Lactic Acid 2.1 H (0.4-2.0) Calcium (8.4-10.2) mg/dL Total Bilirubin (0.2-1.3) mg/dL AST (14-36) U/L ALT (0-35) U/L Alkaline Phosphatase (38-126) U/L Serum Total Protein (6.3-8.2) g/dL Albumin (3.5-5.0) g/dL Urine Color (YELLOW) Urine Appearance (CLEAR) Urine pH (5-6) Ur Specific Stollings (1.005-1.025) Urine Protein (Negative) Urine Ketones (NEGATIVE) Urine Blood (0-5) Maik/ul Urine Nitrite (NEGATIVE) Urine Bilirubin (NEGATIVE) Urine Urobilinogen (0-1) mg/dL Ur Leukocyte Esterase (NEGATIVE) Urine WBC (Auto) (0-5) /HPF Urine RBC (Auto) (0-2) /HPF U Epithel Cells (Auto) (FEW) /HPF Urine Bacteria (Auto) (NEGATIVE) /HPF Urine Culture Reflexed (NO) Urine Glucose (NEGATIVE) mg/dL Urine HCG, Qual POSITIVE (Negative) Urine Opiates Level (NEGATIVE) Ur Methadone (NEGATIVE) Urine Barbiturates (NEGATIVE) Ur Phencyclidine (PCP) (NEGATIVE) Urine Amphetamine (NEGATIVE) U Benzodiazepine Level (NEGATIVE) Urine Cocaine (NEGATIVE) Urine Marijuana (THC) (NEGATIVE) - Progress Progress: improved, re-examined Progress Note: 07/14/18 00:26 pt is feeling much better. her thought processes clear. vss. lactic acid near normal and blood glucose improved. 07/14/18 00:49 pt wants admission. i spoke with dr. medellin who is covering for dr. duarte. i reviewed pts hx, condition, lab results and response to tx. she accepts pt for observation Counseled pt/family regarding: lab results, diagnosis, need for follow-up - Departure Departure Disposition: Observation Clinical Impression: Vaginal bleeding, Hyperglycemia, Positive test Condition: Stable Critical Care Time: Yes Critical Care Time(excluding separately billable procedures): 30-74 minutes Referrals: JULIETA DUARTE [Primary Care Provider] - Additional Instructions: monitor your blood glucose closely and treat your elevated blood glucose per your prescribers recommendations. take your medications as prescribed. follow up with your primary doctor on Monday July 16, 2018. call for appointment.
[2018-07-13] MEDS ORDERED: Zofran 4 MG/2 ML VIAL ONE (21:32)
[2018-07-13] MEDS ORDERED: NovoLIN R ONE ×2 (21:33→22:50)
[2018-07-13 21:34] LABS: BASOPHIL % 0.4 % (0.0-0.4); Basophil (Absolute #) 0.03 (0-0.4); Eosinophil % 2.1 % (0.00-5.0); Eosinophil (Absolute #) 0.16 (0-0.5); Granulocyte Absolute (ANC) 4.15 (1.4-6.9); Granulocytes % 53.7 % (36.0-66.0); Hemoglobin 15.2 gm/dl (12.0-16.0); Lymphocyte (Absolute #) 2.53 (1.0-4.6); Lymphocytes % 32.8 % (24.0-44.0); Mean Cell Volume 85.6 fl (78-100); Mean Corpuscular Hemoglobin 28.9 pg (26-32); Mean Corpuscular Hgb Concent. 33.8 g/dl (32-36); Mean Platelet Volume 10.3 fl (6-9.5); Monocyte (Absolute #) 0.85 (0.0-1.3); Platelet Count 328 K/mm3 (150-450); Red Blood Count 5.26 M/mm3 (4.1-5.4); Red Cell Distribution Width 13.1 % (11.5-14.0); White Blood Count 7.7 K/mm3 (4.0-10.5)
[2018-07-13 21:51] LABS: ALBUMIN 4.3 g/dL (3.5-5.0); ALKALINE PHOSPHATASE 124 U/L (38-126); ANION GAP 19.4 MEQ/L (5-15); BLOOD UREA NITROGEN 17 mg/dL (7-17); CHLORIDE 90 mmol/L (98-107); Calcium 9.8 mg/dL (8.4-10.2); Carbon Dioxide 25 mmol/L (22-30); Creatinine 1 0.64 mg/dL (0.52-1.04); Potassium 5.1 mmol/L (3.5-5.1); SGOT/AST 16 U/L (14-36); SGPT/ALT 18 U/L (0-35); SODIUM 129 mmol/L (137-145); Total Protein 7.9 g/dL (6.3-8.2)
[2018-07-13 21:59] LABS: Glucose 730 mg/dL (74-106)
[2018-07-13 22:43] LABS: Appearance SLIGHTLY CLOUDY (CLEAR); Bilirubin NEGATIVE (NEGATIVE); Blood LARGE Ery/ul (0-5); Epithelial Cells RARE /HPF (FEW); Glucose >=500 mg/dL (NEGATIVE); Ketones NEGATIVE (NEGATIVE); Leukocyte Esterase NEGATIVE (NEGATIVE); Nitrite NEGATIVE (NEGATIVE); Protein,Urine Dip 30 (Negative); Specific Gravity 1.029 (1.005-1.025); Urobilinogen NEGATIVE mg/dL (0-1)
[2018-07-13 22:44] LABS: RBC >101 /HPF (0-2)
[2018-07-13 22:52] LABS: Amphetamine,Urine NEGATIVE (NEGATIVE); Barbiturate,Urine NEGATIVE (NEGATIVE); Benzodiazepine,Urine NEGATIVE (NEGATIVE); Cocaine,Urine NEGATIVE (NEGATIVE); Methadone,Urine NEGATIVE (NEGATIVE); Opiate,Urine NEGATIVE (NEGATIVE); PCP,Urine NEGATIVE (NEGATIVE); THC,Urine NEGATIVE (NEGATIVE)
[2018-07-14] MEDS ORDERED: Sodium Chloride 0.9% 500 ML 500 ML IV ONE ×2 (00:25→00:34)
[2018-07-14 00:41] LABS: ANION GAP 14.2 MEQ/L (5-15); BLOOD UREA NITROGEN 15 mg/dL (7-17); CHLORIDE 96 mmol/L (98-107); Calcium 8.6 mg/dL (8.4-10.2); Carbon Dioxide 25 mmol/L (22-30); Creatinine 1 0.49 mg/dL (0.52-1.04); Glucose 338 mg/dL (74-106); Potassium 4.7 mmol/L (3.5-5.1); SODIUM 131 mmol/L (137-145)
[2018-07-14] MEDS ORDERED: TYLENOL 325 MG PO PRN (01:14)
[2018-07-14] MEDS: Sodium Chloride 0.9% 1000 ML 1,000 ML IV SCH ×2 (01:30→21:05)
[2018-07-14 05:43] LABS: BASOPHIL % 0.3 % (0.0-0.4); Basophil (Absolute #) 0.02 (0-0.4); Eosinophil % 2.2 % (0.00-5.0); Eosinophil (Absolute #) 0.16 (0-0.5); Granulocyte Absolute (ANC) 4.07 (1.4-6.9); Granulocytes % 56.3 % (36.0-66.0); Hematocrit 36.1 % (35-47); Hemoglobin 12.4 gm/dl (12.0-16.0); Lymphocyte (Absolute #) 2.33 (1.0-4.6); Lymphocytes % 32.2 % (24.0-44.0); Mean Cell Volume 83.2 fl (78-100); Mean Corpuscular Hemoglobin 28.6 pg (26-32); Mean Corpuscular Hgb Concent. 34.3 g/dl (32-36); Mean Platelet Volume 9.6 fl (6-9.5); Monocyte (Absolute #) 0.65 (0.0-1.3); Platelet Count 278 K/mm3 (150-450); Red Blood Count 4.34 M/mm3 (4.1-5.4); Red Cell Distribution Width 12.8 % (11.5-14.0); White Blood Count 7.2 K/mm3 (4.0-10.5)
[2018-07-14 06:15] LABS: ANION GAP 15.3 MEQ/L (5-15); BLOOD UREA NITROGEN 11 mg/dL (7-17); CHLORIDE 98 mmol/L (98-107); Calcium 8.8 mg/dL (8.4-10.2); Carbon Dioxide 23 mmol/L (22-30); Creatinine 1 0.45 mg/dL (0.52-1.04); Glucose 430 mg/dL (74-106); Potassium 4.4 mmol/L (3.5-5.1); SODIUM 132 mmol/L (137-145)
[2018-07-14 06:22] LABS: Lactic Acid 2.1 (0.4-2.0)
[2018-07-14] MEDS: NovoLIN R SQ PRN ×4 (07:50→20:55)
[2018-07-14] MEDS ORDERED: Artificial Tears 15 ML OP PRN (09:30)
[2018-07-14] MEDS: THERAGRAN MULTIVITAMIN PO SCH (10:06)
[2018-07-14] MEDS: CLARITIN 10 MG PO SCH (10:06)
[2018-07-14] MEDS: FOLATE 1 MG PO SCH (10:06)
[2018-07-14] MEDS: NICODERM CQ 14 MG TOP SCH (10:06)
[2018-07-14] MEDS: Lantus Insulin SQ SCH (10:07)
[2018-07-14] MEDS: NovoLOG Insulin SQ SCH ×2 (12:13→18:06)
[2018-07-15 06:40] LABS: Risk Ratio 2.7
[2018-07-15 07:11] VITALS: O2SAT 100
[2018-07-15] MEDS: Lantus Insulin SQ SCH (08:21)
[2018-07-15] MEDS: NovoLOG Insulin SQ SCH ×2 (08:22→11:37)
[2018-07-15] MEDS: NICODERM CQ 14 MG TOP SCH (09:18)
[2018-07-15] MEDS: FOLATE 1 MG PO SCH (09:19)
[2018-07-15] MEDS: CLARITIN 10 MG PO SCH (09:19)
[2018-07-15] MEDS: THERAGRAN MULTIVITAMIN PO SCH (09:19)
[2018-07-15 11:52] VITALS: BP 129/76; PULSE 113
--- NOTE | 2018-07-15 11:58 | PCM.DCORD ---
- Discharge Discharge Date: 07/15/18 Disposition: Home, Self-Care Condition: Good Prescriptions: New Blood-Glucose Meter [Accu-Chek Verena Plus] 1 each MC TID #1 each Lancets [Accu-Chek Softclix] 1 each MC TID #100 each Lancing Device/Lancets [Accu-Check Softclix Lancet Kit] 1 each MC TID #1 kit Loratadine 10 mg [Claritin 10 mg] 10 mg PO DAILY #30 tablet Vits W-Ca,Fe,FA(<1Mg) [] 1 each PO EVENING MEAL #30 tablet Changed Insulin Lispro [Admelog Solostar] 10 units SQ TIDWMEALS #0 Insulin Glargine,Hum.rec.anlog [Basaglar Kwikpen U-100] 30 unit SQ DAILY #0 Additional Instructions: You may use a sliding scale with the Admelog. If your blood glucose is 200-250 give 2 extra units of Admelog; 251-300 give 4 extra units of Admelog; 301-350 give 6 extra units of Admelog; 351 to 400 give 8 extra units of Admelog. Have her lab drawn next week to check your hormone level. Your script for the test strips was hand written and your nurse may call this to the pharmacy also. The other scripts for testing supplies were sent electronically. Follow up with: JULIETA ODELL [Primary Care Provider] - 1 Week
[2018-07-15] MEDS: NovoLIN R SQ PRN (12:02)
--- NOTE | 2018-07-16 10:31 | HP ---
HISTORY OF PRESENT ILLNESS: This is a 28 year-old patient of Dr. Ordaz with history of diabetes type 2 who is noncompliant. She reports she is ready to take better care of herself. She presented to the emergency department with a blood sugar of over 700. She reports she was very tired and sleeping more and felt confused. Her father brought her in. She also reported she has some vaginal bleeding on and off for the past three weeks. She thinks her last menstrual period was three weeks ago. She is not sure how much insulin she is supposed to take but did recently get her Basaglar and Amalog filled at the pharmacy. She needs a meter to be able to check her blood sugar. She denies any sores on her feet. She reports her vision gets blurry when her blood sugars are high. She recently saw the eye doctor and her eye glass prescription had not changed and they told her that she had no signs of diabetic retinopathy. The patient reports she was diagnosed about two years ago with diabetes type 2. She is feeling better now and is ready to learn more about diabetes. REVIEW OF SYSTEMS: No nausea or vomiting. No fevers. No rashes. No abdominal pain. No cough. She has had some nasal congestion. Her eyes just in the past couple of hours has started to be itching and watery. PAST MEDICAL HISTORY: Diabetes mellitus type 2, polysubstance abuse. PAST SURGICAL HISTORY: Tonsillectomy and adenoidectomy. Nasal surgery. Jaw repair. MEDICATIONS: Please see the medication reconciliation form which I have reviewed. ALLERGIES: NKDA. SOCIAL HISTORY: She reports she lives alone. She smokes a half a pack of cigarettes per day and is thinking about quitting. She rarely drinks alcohol. She reports using marijuana and meth and trying to cut back on the meth. She denies any cocaine use. FAMILY HISTORY: Her father is living and has lung cancer. Her mother is living and has diabetes mellitus type 2. PHYSICAL EXAMINATION: VITAL SIGNS: Temperature current 98.6F, heart rate 102, respiratory rate 18, blood pressure 122/79. Oxygen saturation 99% on room air. GENERAL: The patient is sitting up a pleasant talkative lady in no acute distress. HEENT: Mild erythema of her conjunctivae. CVS: She has a regular rate and rhythm. No murmurs, gallops or rubs are appreciated. CHEST: Clear to auscultation bilaterally with no crackles or wheezes. ABDOMEN: Soft, nontender, nondistended with normal bowel sounds. EXTREMITIES: No clubbing, cyanosis or edema. SKIN: Warm, dry and intact. LABORATORY DATA AND TESTS: Her sodium is 132, BUN 11, creatinine 0.45, glucose 430, lactic acid 1.6. UA greater than 500 glucose. Urine test was positive. Urine tox was negative. ASSESSMENT AND PLAN: 1) DIABETES TYPE 2, UNCONTROLLED: I am starting her on Lantus 30 units a day and 10 units of short-acting insulin with her meals. In the emergency room, she required a total of 25 units and had already gotten 12 units on a sliding scale here. Will check hemoglobin A1C and a fasting lipid profile. She is discharged a script for a meter and testing supplies. She reports she had insulin at home right now. She will need to follow up closely with her primary care doctor regarding her diabetes. I gave her a flyer about the upcoming diabetes class here at [facility]. 2) POLYSUBSTANCE ABUSE: The patient denies any need for help to quit. The patient was encouraged to quit. She seems motivated to take care of herself. 3) : Will check quantitative beta HCG now and plan for another one next week. Dr. Dietrich said he can follow up with her as an outpatient. Will start multivitamin and also folic acid as no vitamins available here at this facility, according to the pharmacist. 4) ALLERGIC RHINITIS: Will start loratadine and saline eye drops to help with her symptoms.
== END 2018-07-15 13:35 | disposition home or self-care (01) ==
LOC: ED 20:51 → MED SURG 07-14 01:10
PROVIDERS: ADMIT Family Medicine; ATTEND Family Medicine
DX: E11.65 Type 2 diabetes mellitus with hyperglycemia (principal); F19.10 Other psychoactive substance abuse, uncomplicated; Z33.1 Pregnant state, incidental; J30.9 Allergic rhinitis, unspecified; F17.200 Nicotine dependence, unspecified, uncomplicated
CPT/HCPCS: 36000; 36415; 80048; 80053; 80061; 80307; 81001; 82962; 83036; 83605; 83721; 84702; 84703; 85014; 85018; 85025; 93041; 93268; 96360; 96361; 96374; 96375; 96376; 99285; G0378; J2405; A9270-GY

== ENCOUNTER 2020-11-06 19:37 | Emergency (ER) | payer OTHER ==
[2020-11-06] MEDS ORDERED: TORAdol 30 mg Injection IM ONE (20:18)
[2020-11-06] MEDS ORDERED: Augmentin 875-125 Tablet PO ONE (20:18)
[2020-11-06] MEDS ORDERED: TORAdol 30 mg Injection ONE (20:24)
--- NOTE | 2020-11-06 20:24 | ERPHSYRPT ---
- History of Present Illness Time Seen by Provider: 11/06/20 19:56 Source: patient Exam Limitations: no limitations Patient Subjective Stated Complaint: C/O toothache in right upper back of mouth. States pain started a week ago and is not starting to spread to her front top teeth. States pain is causing trouble chewing/eating. She indicates she went to the dentist approx 1 week ago and did not receive any medicine for the tooth pain at that time. Patient indicates that she has been trying to pull out her own tooth for the past few days. Triage Nursing Assessment: No sores noted inside mouth. Slight swelling noted to oral mucosa to distal roof of mouth. No SOB noted. No trouble swallowing reported. Physician History: 30 years old female with history of periodontal disease, poor dentition presented to the ER with right upper premolar and molar toothache for almost 5 days, gradual onset progressively worsening, sharp nature moderate to severe intensity, aggravated with cold and hot and difficulty swallowing with movements of the and associated swelling of right upper cheek/gums. No fever or chills reported. Timing/Duration: gradual onset, days (5) Severity: moderate ENT Location: dental Prearrival Treatment: no prearrival treatment Associated Symptoms: facial pain/swelling, jaw pain, No fever, No change in hearing Allergies/Adverse Reactions: No Known Drug Allergies Allergy (Verified 11/06/20 19:55) Home Medications: Bupropion HCl Xl 150 mg [Wellbutrin XL 150 MG] 150 mg PO BID 11/06/20 [History] Hx Tetanus, Diphtheria Vaccination/Date Given: Yes Hx Influenza Vaccination/Date Given: No Hx Pneumococcal Vaccination/Date Given: No Immunizations Up to Date: Yes Travel Risk - International Travel Have you traveled outside of the country in past 3 weeks: No - Coronavirus Screening Are you exhibiting any of the following symptoms?: No Close contact with a COVID-19 positive Pt in past 14-21 Days: No - Vaccine Status Have you recieved a Covid-19 vaccination: No - Review of Systems Constitutional: No Symptoms Eyes: No Symptoms Ears, Nose, & Throat: Mouth Swelling Respiratory: No Symptoms Cardiac: No Symptoms Musculoskeletal: No Symptoms Neurological: No Symptoms Hematologic/Lymphatic: No Symptoms - Past Medical History Pertinent Past Medical History: Yes Neurological History: No Pertinent History ENT History: No Pertinent History Cardiac History: No Pertinent History Respiratory History: No Pertinent History Endocrine Medical History: Diabetes Type I Musculoskeletal History: No Pertinent History GI Medical History: No Pertinent History History: No Pertinent History Psycho-Social History: Depression Female Reproductive Disorders: No Pertinent History - Past Surgical History Past Surgical History: Yes Neuro Surgical History: No Pertinent History Cardiac: No Pertinent History Respiratory: No Pertinent History Gastrointestinal: No Pertinent History Genitourinary: No Pertinent History Musculoskeletal: No Pertinent History Female Surgical History: No Pertinent History Other Surgical History: nasal surgery. oral surgery - Social History Smoking Status: Current every day smoker How long have you smoked: long time Exposure to second hand smoke: No Drug Use: marijuana Patient Lives Alone: No - Female History Hx Last Menstrual Period: 2 weeks ago Hx Now: No - Nursing Vital Signs Nursing Vital Signs: Initial Vital Signs Temperature 96.7 F 11/06/20 19:43 Pulse Rate 82 11/06/20 19:43 Respiratory Rate 20 11/06/20 19:43 Blood Pressure 112/83 11/06/20 19:43 O2 Sat by Pulse Oximetry 99 11/06/20 19:43 Pain Scale Pain Intensity 5 - Physical Exam General Appearance: no apparent distress, alert Eye Exam: bilateral eye: normal inspection, PERRL, EOMI Ear Exam: bilateral ear: auricle normal, canal normal, TM normal Nasal Exam: normal inspection Throat Exam: dental tenderness (Periodontal disease with caries. 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 Recommended outpatient dental follow-up. Counseled pt/family regarding: diagnosis, need for follow-up - Departure Departure Disposition: Home Clinical Impression: Dental infection Condition: Stable Critical Care Time: No Referrals: JULIETA ODELL [Primary Care Provider] - Follow Up with PCP/3 days DARINEL CHRISTOPHER DDS [NON-STAFF PHY W/O PRIVILEGES] - (Call Monday for reevaluation) Instructions: Tooth Abscess (DC), Dental Pain (DC) Additional Instructions: Take Tylenol/ibuprofen as needed. Follow-up with dentist for reevaluation. Return to ER for intractable pain, swelling, fever chills etc. Prescriptions: Ibuprofen 600 mg PO Q6HPRN PRN 10 Days #20 tablet PRN Reason: Pain Amoxicillin/Potassium Clav [Augmentin 875-125 Tablet] 875 mg PO BID 7 Days #14 tablet
[2020-11-06] MEDS ORDERED: Augmentin 875-125 Tablet ONE (20:25)
[2020-11-06 20:45] VITALS: BP 121/80; PULSE 74; O2SAT 96
== END 2020-11-06 20:38 | disposition home or self-care (01) ==
LOC: ED 19:37
DX: K04.7 Periapical abscess without sinus (principal)
CPT/HCPCS: 96372; 99283; J1885; A9270-GY

== ENCOUNTER 2022-02-22 18:12 | Emergency (ER) | payer OTHER ==
--- NOTE | 2022-02-22 19:28 | ERPHSYRPT ---
- History of Present Illness Time Seen by Provider: 02/22/22 19:28 Source: patient Exam Limitations: no limitations Physician History: This is a 31-year-old diabetic white female patient of Dr. Pizano who presents with relatively sudden onset of left earache since this morning. Patient states she has not used any ibuprofen or Tylenol for pain control. She has not had a fever. She has no cough. She denies abdominal pain. She denies chest pain. She denies shortness of breath. She denies vomiting and diarrhea. Timing/Duration: abrupt onset, this morning Severity: moderate ENT Location: ear (L) Prearrival Treatment: no prearrival treatment Modifying Factors: Improves With: nothing Associated Symptoms: ear pain (L), No cough, No fever, No dizziness, No headache Allergies/Adverse Reactions: No Known Drug Allergies Allergy (Verified 02/22/22 19:49) Home Medications: Bupropion HCl Xl 150 mg [Wellbutrin XL 150 MG] 150 mg PO BID 11/06/20 [History] Hx Tetanus, Diphtheria Vaccination/Date Given: Yes Hx Influenza Vaccination/Date Given: No Hx Pneumococcal Vaccination/Date Given: No Travel Risk - International Travel Have you traveled outside of the country in past 3 weeks: No - Coronavirus Screening Are you exhibiting any of the following symptoms?: No Close contact with a COVID-19 positive Pt in past 14-21 Days: No - Vaccine Status Have you recieved a Covid-19 vaccination: No - Review of Systems Constitutional: No Symptoms Eyes: No Symptoms Ears, Nose, & Throat: Ear Pain (Left), No Ear Discharge, No Hearing Changes Respiratory: No Symptoms Cardiac: No Symptoms Abdominal/Gastrointestinal: No Symptoms Genitourinary Symptoms: No Symptoms Musculoskeletal: No Symptoms Skin: No Symptoms Neurological: No Symptoms Psychological: No Symptoms Endocrine: No Symptoms Hematologic/Lymphatic: No Symptoms Immunological/Allergic: No Symptoms All Other Systems: Reviewed and Negative - Past Medical History Pertinent Past Medical History: Yes Neurological History: No Pertinent History ENT History: No Pertinent History Cardiac History: No Pertinent History Respiratory History: No Pertinent History Endocrine Medical History: Diabetes Type I Musculoskeletal History: No Pertinent History GI Medical History: No Pertinent History History: No Pertinent History Psycho-Social History: Depression Female Reproductive Disorders: No Pertinent History - Past Surgical History Past Surgical History: Yes Neuro Surgical History: No Pertinent History Cardiac: No Pertinent History Respiratory: No Pertinent History Gastrointestinal: No Pertinent History Genitourinary: No Pertinent History Musculoskeletal: No Pertinent History Female Surgical History: No Pertinent History Other Surgical History: nasal surgery. oral surgery - Social History Smoking Status: Current every day smoker How long have you smoked: long time Exposure to second hand smoke: No Drug Use: marijuana Patient Lives Alone: No - Nursing Vital Signs Nursing Vital Signs: Initial Vital Signs Temperature 98.6 F 02/22/22 19:40 Pulse Rate 78 02/22/22 19:40 Respiratory Rate 16 02/22/22 19:40 Blood Pressure 107/61 02/22/22 19:40 O2 Sat by Pulse Oximetry 98 02/22/22 19:40 Pain Scale Pain Intensity 7 - Physical Exam General Appearance: no apparent distress, alert, anxiety Eye Exam: bilateral eye: normal inspection, PERRL, EOMI Ear Exam: right ear: canal normal, TM normal, left ear: erythema (Ear canal), swelling (Ear canal), TM red, bilateral ear: auricle normal Nasal Exam: normal inspection Throat Exam: normal, pharynx normal Neck Exam: normal inspection, non-tender, supple, full range of motion, trachea midline Cardiovascular/Respiratory Exam: chest non-tender, no respiratory distress Abdominal Exam: non-tender Neurologic Exam: alert, oriented x 3, cooperative, patient educator II-XII nml as tested, normal mood/affect, nml cerebellar function, nml station & gait, sensation nml Skin Exam: normal color, warm, dry SpO2 Interpretation: normal O2 Delivery: Room Air - Course Nursing assessment & vital signs reviewed: Yes Ordered Tests: Medication Summary Generic Name Dose Route Start Last Admin Trade Name Vick PRN Reason Stop Dose Admin Acetaminophen 650 mg 02/22/22 20:36 Acetaminophen 325 Mg Tablet PO 02/22/22 20:37 STAT ONE Amoxicillin 500 mg 02/22/22 20:35 Amoxicillin Trihydrate 500 Mg Capsule PO 02/22/22 20:36 STAT ONE Prednisone 20 mg 02/22/22 20:36 Prednisone 20 Mg Tablet PO 02/22/22 20:37 STAT ONE - Progress Progress: unchanged Counseled pt/family regarding: diagnosis, need for follow-up - Departure Departure Disposition: Home Clinical Impression: Left otitis media Condition: Stable Critical Care Time: No Referrals: JULIETA PIZANO [Primary Care Provider] - Follow up/PCP as directed Additional Instructions: Take medication as prescribed. Add Tylenol and ibuprofen for pain and fever control. Follow-up with your primary care provider if symptoms persist. Monitor your blood sugar levels closely while taking the prednisone. The prednisone may increase your blood sugar levels. Prescriptions: Amoxicillin 500 mg Cap [Amoxil 500 mg] 500 mg PO TID #30 cap Prednisone 10 mg [Deltasone 10 mg] 10 mg PO TID #12 tablet
[2022-02-22 19:48] VITALS: BP 107/61; PULSE 78; O2SAT 98
[2022-02-22] MEDS ORDERED: AMOXIL 500 MG PO ONE (20:35)
[2022-02-22] MEDS ORDERED: DELTASONE 20 MG PO ONE (20:36)
[2022-02-22] MEDS ORDERED: TYLENOL 325 MG PO ONE (20:36)
[2022-02-22] MEDS ORDERED: DELTASONE 20 MG ONE (20:40)
[2022-02-22] MEDS ORDERED: TYLENOL 325 MG ONE (20:40)
[2022-02-22] MEDS ORDERED: AMOXIL 500 MG ONE (20:41)
== END 2022-02-22 20:52 | disposition home or self-care (01) ==
LOC: ED 18:12
DX: H66.92 Otitis media, unspecified, left ear (principal); H92.02 Otalgia, left ear; E10.9 Type 1 diabetes mellitus without complications; Z79.52 Long term (current) use of systemic steroids; Z79.899 Other long term (current) drug therapy; Z28.310 Unvaccinated for COVID-19; Z72.0 Tobacco use
CPT/HCPCS: 99282; A9270-GY

== ENCOUNTER 2023-11-25 12:51 | Emergency (ER) | payer OTHER ==
[2023-11-25 13:11] VITALS: TEMP 97.7
[2023-11-25] MEDS ORDERED: Sodium Chloride 0.9% 1000 ML 1,000 ML ONE ×2 (13:26→14:55)
[2023-11-25] MEDS: Sodium Chloride 0.9% 1000 ML 1,000 ML IV STA ×2 (13:28→14:55)
[2023-11-25 13:29] LABS: Absolute Neutrophil Ct (ANC) 2.86 x10^3/uL (1.56-6.13); BASOPHIL % 0.5 % (0.1-1.2); Basophil (Absolute #) 0.03 x10^3/uL (0.01-0.08); Eosinophil % 0.7 % (0.7-5.8); Eosinophil (Absolute #) 0.04 x10^3/uL (0.04-0.36); Hematocrit 43.7 % (34.1-44.9); Hemoglobin 14.5 g/dL (11.2-15.7); IMMATURE GRAN # 0.01 x10^3u/L (0.001-0.031); IMMATURE GRAN % 0.2 % (0.001-0.429); Lymphocyte (Absolute #) 2.13 x10^3/uL (1.18-3.74); Lymphocytes % 36.9 % (19.3-51.7); Mean Cell Volume 80.8 fL (79.4-94.8); Mean Corpuscular Hemoglobin 26.8 pg (25.6-32.2); Mean Corpuscular Hgb Concent. 33.2 g/dL (32.2-35.5); Mean Platelet Volume 9.2 fL (9.4-12.3); Monocyte (Absolute #) 0.71 x10^3/uL (0.24-0.86); Monocytes % 12.3 % (4.7-12.5); Neutrophil % 49.4 % (34.0-71.1); Platelet Count 324 x10^3/uL (182-369); Red Blood Count 5.41 x10^6/uL (3.93-5.22); Red Cell Distribution Width 13.8 % (11.7-14.4); White Blood Count 5.8 x10^3/uL (3.98-10.04)
[2023-11-25 13:41] LABS: ALBUMIN 4.9 g/dL (3.5-5.0); ANION GAP 18.7 MEQ/L (5-15); BILIRUBIN,TOTAL 0.6 mg/dL (0.2-1.3); Calcium 10.3 mg/dL (8.4-10.2); Creatinine 1 1.16 mg/dL (0.52-1.04); EST GLOMERULAR FILTRATION RATE 63.8 ML/MIN; Potassium 4.4 mmol/L (3.5-5.1); Total Protein 8.9 g/dL (6.3-8.2)
--- NOTE | 2023-11-25 13:47 | ERPHSYRPT ---
- History of Present Illness Time Seen by Provider: 11/25/23 13:44 Source: patient Exam Limitations: no limitations Patient Subjective Stated Complaint: pt states that a week before her period that she vomits for 3-4 days and is weak and light headed, this has been going o n for about a year Triage Nursing Assessment: Pt brought to the ER by her father, hypotensive, tachycardic, denies pain, pulses normal, skin pale and cool, vomiting, light hea ded, dizzy, no difficulty breathing, denies diarrhea Physician History: Patient is a 33-year-old female with history of type 1 diabetes mellitus started having some weakness lethargy since last night she is unable to eat or drink since last night she has a 4 episode of vomiting since last night. Patient has open on this type of symptoms for last 2 to 3 years for which layla grijalva has multiple ER visit approximately every 1 to 2 months. Patient was at [facility] emergency room on October 07, 2023 and at that time she has the same symptoms was diagnosed with urinary tract infection. She was feeling okay send still has off-and-on vomiting 2-3 times a day she was seen by her primary care nurse practitioner recently. She denies any fever chills. She denies any blood in the stool or urine. She denies any fever or chills. Timing/Duration: week(s) Severity: mild Associated Symptoms: nausea, vomiting Allergies/Adverse Reactions: No Known Drug Allergies Allergy (Verified 11/25/23 13:11) Home Medications: Esomeprazole Magnesium 40 mg PO DAILY 11/25/23 [History] Insulin Glargine,Hum.rec.anlog [Basaglar Kwikpen U-100] 38 unit SQ DAILY 11/25/23 [History] Insulin Lispro [Admelog Solostar] 0 units SQ UD 11/25/23 [History] Hx Tetanus, Diphtheria Vaccination/Date Given: Yes Hx Influenza Vaccination/Date Given: No Hx Pneumococcal Vaccination/Date Given: No Travel Risk - International Travel Have you traveled outside of the country in past 3 weeks: No - Emerging Infectious Disease Are you exhibiting symptoms associated with any current EIDs: Yes Symptoms: Vomitting - Review of Systems Constitutional: Weakness, No Fever, No Chills Eyes: No Symptoms Ears, Nose, & Throat: No Symptoms Respiratory: No Cough, No Dyspnea Cardiac: No Chest Pain, No Edema, No Syncope Abdominal/Gastrointestinal: Nausea, Vomiting, No Abdominal Pain, No Diarrhea Genitourinary Symptoms: No Dysuria Musculoskeletal: No Back Pain, No Neck Pain Skin: No Rash Neurological: No Dizziness, No Focal Weakness, No Sensory Changes Psychological: No Symptoms Endocrine: No Symptoms All Other Systems: Reviewed and Negative - Past Medical History Pertinent Past Medical History: Yes Neurological History: No Pertinent History ENT History: No Pertinent History Cardiac History: No Pertinent History Respiratory History: No Pertinent History Endocrine Medical History: Diabetes Type I Musculoskeletal History: No Pertinent History GI Medical History: No Pertinent History History: No Pertinent History Psycho-Social History: Depression Female Reproductive Disorders: No Pertinent History - Past Surgical History Past Surgical History: Yes Neuro Surgical History: No Pertinent History Cardiac: No Pertinent History Respiratory: No Pertinent History Gastrointestinal: No Pertinent History Genitourinary: No Pertinent History Musculoskeletal: No Pertinent History Female Surgical History: No Pertinent History Other Surgical History: nasal surgery. oral surgery - Female History Hx Last Menstrual Period: last month Hx Now: No - Social History Smoking Status: Current every day smoker How long have you smoked: long time Exposure to second hand smoke: Yes Drug Use: marijuana Patient Lives Alone: No - Social Determinants of Health Will the patient participate in the screening: Yes Do you worry about a steady place to live?: No Do you have any problems with any of the following?: No known problems In the past 12 months,have you had to go without utilities?: No Transportation Issues: No Has anyone in your support network made you feel unsafe?: No Have you or anyone in your house had to go without enough: No - Nursing Vital Signs Nursing Vital Signs: Initial Vital Signs Temperature 97.7 F 11/25/23 12:58 Pulse Rate 131 H 11/25/23 12:58 Blood Pressure 87/61 11/25/23 12:58 O2 Sat by Pulse Oximetry 99 11/25/23 12:58 Pain Scale Pain Intensity 0 - Physical Exam General Appearance: no apparent distress, alert Eye Exam: PERRL/EOMI, eyes nml inspection Ears, Nose, Throat Exam: normal ENT inspection, TMs normal, pharynx normal, moist mucous membranes Neck Exam: normal inspection, non-tender, supple, full range of motion Respiratory Exam: normal breath sounds, lungs clear, No respiratory distress Cardiovascular Exam: regular rate/rhythm, normal heart sounds, normal peripheral pulses Gastrointestinal/Abdomen Exam: soft, normal bowel sounds, No tenderness, No mass Pelvic Exam: not done Rectal Exam: deferred Back Exam: normal inspection, normal range of motion, No CVA tenderness, No vertebral tenderness Extremity Exam: normal inspection, normal range of motion, pelvis stable Neurologic Exam: alert, oriented x 3, cooperative, normal mood/affect, nml cerebellar function, nml station & gait, sensation nml, No motor deficits Skin Exam: normal color, warm, dry, No rash Lymphatic Exam: No adenopathy SpO2 Interpretation: normal SpO2: 99 O2 Delivery: Room Air - Course Nursing assessment & vital signs reviewed: Yes Ordered Tests: Active Orders 24 hr Category Date Time Status POCT Glucose Check STAT Care 11/25/23 13:30 Active CBC W DIFF Stat Lab 11/25/23 13:15 Completed CMP Stat Lab 11/25/23 13:15 Completed CULTURE,URINE Stat Lab 11/25/23 15:01 Received MAGNESIUM Stat Lab 11/25/23 13:15 Completed POCT GLUCOSE Stat Lab 11/25/23 13:28 Completed UA W/RFX UR CULTURE Stat Lab 11/25/23 15:01 Completed Urine Triage Profile Stat Lab 11/25/23 15:01 Completed Medication Summary Generic Name Dose Route Start Last Admin Trade Name Freq PRN Reason Stop Dose Admin Sodium Chloride 1,000 mls @ 999 mls/hr 11/25/23 14:51 11/25/23 14:55 Sodium Chloride 0.9% 1000 Ml IV 11/25/23 15:51 999 mls/hr .Q1H1M STA Administration Ceftriaxone Sodium 1 gm in 100 mls @ 200 mls/hr 11/25/23 15:28 11/25/23 15:31 Rocephin 1 Gm / 100 Ml Nacl IV 11/25/23 15:57 200 mls/hr STAT ONE 200 mls/hr Administration Discontinued Medications Generic Name Dose Route Start Last Admin Trade Name Freq PRN Reason Stop Dose Admin Sodium Chloride 1,000 mls @ 999 mls/hr 11/25/23 13:17 11/25/23 15:01 Sodium Chloride 0.9% 1000 Ml IV 11/25/23 14:17 Infused .Q1H1M STA Infusion Sodium Chloride Confirm 11/25/23 13:26 Sodium Chloride 0.9% 1000 Ml Administered 11/25/23 13:27 Dose 1,000 mls @ ud .ROUTE .STK-MED ONE Sodium Chloride Confirm 11/25/23 14:55 Sodium Chloride 0.9% 1000 Ml Administered 11/25/23 14:56 Dose 1,000 mls @ ud .ROUTE .STK-MED ONE Ceftriaxone Sodium Confirm 11/25/23 15:30 Rocephin 1 Gm / 100 Ml Nacl Administered 11/25/23 15:31 Dose 1 gm in 100 mls @ ud IV .STK-MED ONE Lab/Rad Data: Laboratory Result Diagrams 11/25/23 13:15 11/25/23 13:15 Laboratory Results 11/25/23 11/25/23 11/25/23 Range/Units 15:01 15:01 13:28 WBC (3.98-10.04) x10^3/uL RBC (3.93-5.22) x10^6/uL Hgb (11.2-15.7) g/dL Hct (34.1-44.9) % MCV (79.4-94.8) fL MCH (25.6-32.2) pg MCHC (32.2-35.5) g/dL RDW (11.7-14.4) % Plt Count (182-369) x10^3/uL MPV (9.4-12.3) fL Gran % (34.0-71.1) % Immature Gran % (Auto) (0.001-0.429) % Nucleat RBC Rel Count (0.00-0.2) % Eos # (Auto) (0.04-0.36) x10^3/uL Immature Gran # (Auto) (0.001-0.031) x10^3u/L Absolute Lymphs (auto) (1.18-3.74) x10^3/uL Absolute Monos (auto) (0.24-0.86) x10^3/uL Absolute Nucleated RBC (0.00-0.012) x10^3u/L Lymphocytes % (19.3-51.7) % Monocytes % (4.7-12.5) % Eosinophils % (0.7-5.8) % Basophils % (0.1-1.2) % Absolute Granulocytes (1.56-6.13) x10^3/uL Basophils # (0.01-0.08) x10^3/uL Sodium (135-145) mmol/L Potassium (3.5-5.1) mmol/L Chloride (98-107) mmol/L Carbon Dioxide (22-30) mmol/L Anion Gap (5-15) MEQ/L BUN (7-17) mg/dL Creatinine (0.52-1.04) mg/dL Estimated GFR ML/MIN Glucose (74-106) mg/dL POC Glucometer 195 H (74 to 106) mg/dL Calcium (8.4-10.2) mg/dL Magnesium (1.6-2.3) mg/dL Total Bilirubin (0.2-1.3) mg/dL AST (14-36) U/L ALT (0-35) U/L Alkaline Phosphatase (38-126) U/L Serum Total Protein (6.3-8.2) g/dL Albumin (3.5-5.0) g/dL Urine Color Yellow (Yellow) Urine Appearance Cloudy A (Clear) Urine pH 7.0 (4.6-8.0) Ur Specific [place] 1.015 (1.005-1.030) Urine Protein 300 A (Negative) Urine Glucose (UA) 100 A (Negative) mg/dL Urine Ketones Trace A (Negative) Urine Blood Small A (Negative) Urine Nitrite Negative (Negative) Urine Bilirubin Negative (Negative) Urine Urobilinogen 1.0 A (0.2) mg/dL Ur Leukocyte Esterase Trace A (Negative) U Hyaline Cast (Auto) 0-2 (0-2) /LPF Urine Microscopic RBC 3-5 (0-5) /HPF Urine Microscopic WBC 3-5 (0-5) /HPF Ur Epithelial Cells Moderate A (None Seen) /HPF Urine Bacteria Moderate A (None Seen) /HPF Urine Culture Reflexed YES (NO) Urine Opiates Level NEGATIVE (NEGATIVE) Ur Methadone NEGATIVE (NEGATIVE) Urine Barbiturates NEGATIVE (NEGATIVE) Ur Phencyclidine (PCP) NEGATIVE (NEGATIVE) Urine Amphetamine NEGATIVE (NEGATIVE) U Benzodiazepine Level NEGATIVE (NEGATIVE) Urine Cocaine NEGATIVE (NEGATIVE) Urine Marijuana (THC) POSITIVE A (NEGATIVE) 11/25/23 11/25/23 Range/Units 13:15 13:15 WBC 5.8 (3.98-10.04) x10^3/uL RBC 5.41 H (3.93-5.22) x10^6/uL Hgb 14.5 (11.2-15.7) g/dL Hct 43.7 (34.1-44.9) % MCV 80.8 (79.4-94.8) fL MCH 26.8 (25.6-32.2) pg MCHC 33.2 (32.2-35.5) g/dL RDW 13.8 (11.7-14.4) % Plt Count 324 (182-369) x10^3/uL MPV 9.2 L (9.4-12.3) fL Gran % 49.4 (34.0-71.1) % Immature Gran % (Auto) 0.2 (0.001-0.429) % Nucleat RBC Rel Count 0.0 (0.00-0.2) % Eos # (Auto) 0.04 (0.04-0.36) x10^3/uL Immature Gran # (Auto) 0.01 (0.001-0.031) x10^3u/L Absolute Lymphs (auto) 2.13 (1.18-3.74) x10^3/uL Absolute Monos (auto) 0.71 (0.24-0.86) x10^3/uL Absolute Nucleated RBC 0.00 (0.00-0.012) x10^3u/L Lymphocytes % 36.9 (19.3-51.7) % Monocytes % 12.3 (4.7-12.5) % Eosinophils % 0.7 (0.7-5.8) % Basophils % 0.5 (0.1-1.2) % Absolute Granulocytes 2.86 (1.56-6.13) x10^3/uL Basophils # 0.03 (0.01-0.08) x10^3/uL Sodium 135 (135-145) mmol/L Potassium 4.4 (3.5-5.1) mmol/L Chloride 93 L (98-107) mmol/L Carbon Dioxide 28 (22-30) mmol/L Anion Gap 18.7 H (5-15) MEQ/L BUN 24 H (7-17) mg/dL Creatinine 1.16 H (0.52-1.04) mg/dL Estimated GFR 63.8 ML/MIN Glucose 205 H (74-106) mg/dL POC Glucometer (74 to 106) mg/dL Calcium 10.3 H (8.4-10.2) mg/dL Magnesium 2.0 (1.6-2.3) mg/dL Total Bilirubin 0.60 (0.2-1.3) mg/dL AST 31 (14-36) U/L ALT 31 (0-35) U/L Alkaline Phosphatase 77 (38-126) U/L Serum Total Protein 8.9 H (6.3-8.2) g/dL Albumin 4.9 (3.5-5.0) g/dL Urine Color (Yellow) Urine Appearance (Clear) Urine pH (4.6-8.0) Ur Specific [place] (1.005-1.030) Urine Protein (Negative) Urine Glucose (UA) (Negative) mg/dL Urine Ketones (Negative) Urine Blood (Negative) Urine Nitrite (Negative) Urine Bilirubin (Negative) Urine Urobilinogen (0.2) mg/dL Ur Leukocyte Esterase (Negative) U Hyaline Cast (Auto) (0-2) /LPF Urine Microscopic RBC (0-5) /HPF Urine Microscopic WBC (0-5) /HPF Ur Epithelial Cells (None Seen) /HPF Urine Bacteria (None Seen) /HPF Urine Culture Reflexed (NO) Urine Opiates Level (NEGATIVE) Ur Methadone (NEGATIVE) Urine Barbiturates (NEGATIVE) Ur Phencyclidine (PCP) (NEGATIVE) Urine Amphetamine (NEGATIVE) U Benzodiazepine Level (NEGATIVE) Urine Cocaine (NEGATIVE) Urine Marijuana (THC) (NEGATIVE) - Progress Progress: improved Counseled pt/family regarding: lab results, diagnosis, need for follow-up Medical Desision Making - Diagnostic Testing Diagnostic test were ordered, analyzed, and reviewed by me: Yes - Risk of complications Minimal Risk: Minimal risk of morbidity - Departure Departure Disposition: Home Clinical Impression: Gastroparesis due to DM Uncontrolled type 2 diabetes mellitus Qualifiers: Glycemic state: with hyperglycemia Qualified Code(s): E11.65 - Type 2 diabetes mellitus with hyperglycemia UTI (urinary tract infection) Qualifiers: Urinary tract infection type: acute cystitis Condition: Stable Critical Care Time: No Referrals: JULIETA ODELL [Primary Care Provider] - Follow Up with PCP/3 days Instructions: Urinary tract infections in adults, Gastroparesis (delayed gastric emptying) Additional Instructions: Discharge/Care Plan VINCENZO HUMPHREY was seen on 11/25/23 in the Emergency Room. The patient was counseled regarding Diagnosis,Lab results, Imaging studies, need for follow up and when to return to the Emergency Room. Prescriptions given: Discharge Note I have spoken with the patient and/or caregivers. I have explained the patient's condition, diagnosis and treatment plan based on the information available to me at this time. I have answered the patient's and/or caregiver's questions and addressed any concerns. The patient and/or caregivers have as good understanding of the patient's diagnosis, condition and treatment plan as can be expected at this point. The vital signs have been stable. The patient's condition is stable and appropriate for discharge from the emergency department. The patient will pursue further outpatient evaluation with the primary care physician or other designated or consulting physician as outlined in the discharge instructions. The patient and/or caregivers are agreeable to this plan of care and follow-up instructions have been explained in detail. The patient and/or caregivers have received these instruction. The patient/and or caregivers are aware that any significant change in condition or worsening of symptoms should prompt an immediate return to this or the closest emergency department or call 911. VINCENZO HUMPHREY was seen on 11/25/23 n the Emergency Room. At that time you were treated for an emergent condition, during your visit Laboratory, Radiology and/or other procedures may have been ordered. It is very important that you follow-up with your Primary Care Physician JULIETA ODELL within the next 24-48 hours to review your Emergency Room visit and the final results of testing that was ordered. Some test results such as Urine Cultures, Blood Cultures, and other cultures if ordered will not be finalized for 24-48 hours. If you do not have a Primary Care Provider please call the medical records department at [phone] to obtain a copy of your results or you may sign into our patient portal to obtain these results by visiting us @ [email or web address] and completing the following steps: 1. Click on the Patient Portal link 2. Click the Patient Self Enrollment Link to complete the enrollment form and entering your 3. Once the enrollment form is completed you will receive an email with a temporary ID and password at the email address you provided. 4. Next choose a user name and password. Your user name must be at least 4 characters long and your password must be at least 4 characters long. 5. Choose a security question from the list and provide your answer to the question. If you already have signed into the Health Portal you may access your Health Care Information 19/09 by the following steps: 1. Login to our website @ [email or web address] 2. Enter your original user name and password. FAQS The [facility] Health Portal is an online tool that contains your Lab Results, Radiology Reports, Visit History, Discharge Instructions and Health Summary Lab and Radiology Results will not be available for 72 hours on the portal. The Portal is a secure site, passwords are encryted and URLs are re-written so they cannot be copied and pasted. You and authorized family members are the only ones who can access your Portal. Also there is a timeout feature that protects your information if you leave the Portal page open. If you have technical difficulty please use the Contact Us link on the page this will allow you to submit any questions you have regarding the Portal or you may contact the Medical Record Department at [phone]. Prescriptions: Ciprofloxacin [Cipro 500 MG] 500 mg PO BID #10 tablet Metoclopramide HCl 5 mg PO TIDWMEALS #45 tablet
[2023-11-25 15:02] VITALS: PULSE 88; RESP 16
[2023-11-25 15:21] LABS: Amphetamine,Urine NEGATIVE (NEGATIVE); Barbiturate,Urine NEGATIVE (NEGATIVE); Benzodiazepine,Urine NEGATIVE (NEGATIVE); Cocaine,Urine NEGATIVE (NEGATIVE); Methadone,Urine NEGATIVE (NEGATIVE); Opiate,Urine NEGATIVE (NEGATIVE); PCP,Urine NEGATIVE (NEGATIVE); THC,Urine POSITIVE (NEGATIVE)
[2023-11-25 15:23] LABS: Appearance Cloudy (Clear); Bacteria Moderate /HPF (None Seen); Bilirubin Negative (Negative); Blood Small (Negative); Epithelial Cells Moderate /HPF (None Seen); Glucose, Urine 100 mg/dL (Negative); Hyaline Casts 0-2 /LPF (0-2); Ketones Trace (Negative); Leukocyte Esterase Trace (Negative); Nitrite Negative (Negative); Protein,Urine Dip 300 (Negative); Specific Gravity 1.015 (1.005-1.030)
[2023-11-25] MEDS ORDERED: ROCEPHIN 1 GM / 100 ML NaCl 1 GM/100 ML IVPB IV ONE (15:30)
[2023-11-25] MEDS: ROCEPHIN 1 GM / 100 ML NaCl 1 GM/100 ML IVPB IV ONE (15:31)
[2023-11-25 16:10] VITALS: BP 119/84; O2SAT 100
== END 2023-11-25 16:24 | disposition home or self-care (01) ==
LOC: ED 12:51
DX: E10.43 Type 1 diabetes mellitus with diabetic autonomic (poly)neuropathy (principal); E10.65 Type 1 diabetes mellitus with hyperglycemia; K31.84 Gastroparesis; N30.00 Acute cystitis without hematuria; R53.1 Weakness; R11.2 Nausea with vomiting, unspecified; Z79.899 Other long term (current) drug therapy; Z72.0 Tobacco use
CPT/HCPCS: 36415; 80053; 80307; 81001; 82947; 83735; 85025; 87086; 96360; 96361; 96365; 99284; J0696